=== PATIENT | female | born 1975 ===

== ENCOUNTER 2020-04-20 10:27 | Outpatient (REF) | payer OTHER, SELFPAY | END 2020-04-20 10:28 | disposition home or self-care (01) | LOC: HO.LAB 10:27 | PROVIDERS: Visit Provider Internal Medicine | DX: Z20.828 Contact with and (suspected) exposure to other viral communicable diseases (principal) | CPT/HCPCS: U0003 ==

== ENCOUNTER → 2020-09-10 12:25 | Outpatient (BNVA) | payer OTHER, SELFPAY | PROVIDERS: Visit Provider Physician Assistant | DX: Z13.89 Encounter for screening for other disorder (principal) | CPT/HCPCS: Q3014 ==

== ENCOUNTER 2020-09-11 09:29 | Outpatient (REF) | payer OTHER, SELFPAY ==
[2020-09-11 10:07] LABS: MANUAL DIFF FLAG NO
[2020-09-11 10:18] LABS: Basophils Percent Auto 0.5 % (0-2); Eosinophils Absolute Auto 0.2 X10*3/uL (0.0-0.4); Hematocrit 43.8 % (37-47); Hemoglobin 14.8 g/dl (12.0-16.0); Imm Gran Abs Auto 0.02 X10*3/uL (0.00-0.03); Imm Gran Pct Auto 0.3 % (0.0-0.4); Lymphocytes Percent Auto 39.7 % (20-40); Mean Corpuscular HGB Conc 33.8 g/dl (31.0-35.0); Mean Corpuscular Hemoglobin 30.6 pg (27.0-33.0); Mean Corpuscular Volume 90.7 fL (80-98); Mean Platelet Volume 8.6 fL (9.4-12.3); Monocytes Absolute Auto 0.6 X10*3/uL (0.1-1.2); Monocytes Percent Auto 7.3 % (2-11); Neutrophils Absolute Auto 3.8 X10*3/uL (2.0-8.3); Neutrophils Percent Auto 50.2 % (45-73); Platelet Count 370 X10*3/uL (160-400); Red Blood Count 4.83 X10*6/uL (4.20-5.50); Red Cell Distribution Width 11.9 % (11.0-16.0); White Blood Count 7.6 X10*3/uL (4.8-10.8)
[2020-09-11 10:28] LABS: Estimated Average Glucose 111 mg/dL; Hemoglobin A1c % 5.5 %
[2020-09-11 10:51] LABS: Alanine Aminotransferase 23 U/L (0-31); Albumin Level 4.5 g/dL (3.5-5.0); Alkaline Phosphatase 94 U/L (39-117); Aspartate Amino Transferase 20 U/L (5-31); Bilirubin Direct 0.2 mg/dL (0.0-0.5); Bilirubin Total 0.9 mg/dL (0.0-1.0); Cholesterol 265 mg/dL; HDL Cholesterol 38 mg/dL; LDL Cholesterol Calculated 170 mg/dl; Total Protein 7.1 g/dL (6.5-8.0); Triglycerides 289 mg/dL
[2020-09-11 11:10] LABS: HBS Num1 6.19 mIU/mL (0-7.99); HBc Num1 0.07 S/CO (0.00-0.79); HBsAGNum1 0.19 S/CO (0.00-0.99); Hepatitis B Core Antibody Nonreactive (Nonreactive); Hepatitis B Surface Antigen Negative (Negative); ~HepC Num1 0.08 S/CO (0.00-0.79); ~Hepatitis B Surface Antibody NONREACTIVE (Nonreactive); ~Hepatitis C Antibody Nonreactive (Nonreactive)
[2020-09-13 04:47] LABS: Hepatitis A Antibody IgM 0.13 Index (0-0.79); ~Hepatitis A Antibody IgM Nonreactive (Nonreactive)
[2020-09-13 21:47] LABS: Insulin Level Total 11.4 uIU/mL
[2020-09-14 15:16] LABS: FIB-ALT 21 U/L (6-29); FIB-Alpha-2-Macroglobulin 257 mg/dL (106-279); FIB-Apolipoprotein A1 149 mg/dL (101-198); FIB-GGT 30 U/L (3-55); FIB-Haptoglobin 236 mg/dL (43-212); FIB-Total Bilirubin 0.4 mg/dL (0.2-1.2); Liver Fibrosis Score 0.15; Liver Fibrosis Stage F0; Nec Inflam Act Grade A0; Nec Inflam Act Score 0.07
== END 2020-09-11 09:30 | disposition home or self-care (01) ==
LOC: HO.LAB 09:29
PROVIDERS: PCP Family Medicine; Visit Provider Physician Assistant
DX: B19.20 Unspecified viral hepatitis C without hepatic coma (principal); K76.0 Fatty (change of) liver, not elsewhere classified; R79.89 Other specified abnormal findings of blood chemistry; R10.11 Right upper quadrant pain; R74.01 Elevation of levels of liver transaminase levels
CPT/HCPCS: 36415; 80061; 80076; 81596; 83036; 83525; 85025; 86704; 86706; 86709; 86803; 87340

== ENCOUNTER 2020-09-26 18:18 | Emergency (ER) | payer OTHER, SELFPAY ==
--- NOTE | ~2020-09-26 | CT_ITS ---
EXAMINATION: CT ABDOMEN AND PELVIS WITHOUT CONTRAST CLINICAL INFORMATION: Right flank pain and hematuria COMPARISON: Abdominal ultrasound 02/28/2020 CT abdomen pelvis 08/04/2016 TECHNIQUE: Multidetector volumetric imaging was performed from the superior aspect of the liver through the pubic symphysis. Sagittal and coronal reformatted images were obtained on the technologist's workstation. This CT examination was performed using dose optimization techniques as appropriate, variously including the following: *Automated exposure control *Adjustment of mA and/or kV according to patient size (this includes techniques or standardized protocols for targeted exams where dose is matched to indication/reason for exam; i.e. extremities or head) *Use of iterative reconstruction technique DLP: 728 mGy-cm FINDINGS: LUNG BASES: The visualized lung bases are unremarkable. LIVER, GALLBLADDER, AND BILIARY TREE: The liver is normal in size, shape, and attenuation. No focal hepatic lesion or biliary ductal dilatation is present. Status post cholecystectomy. PANCREAS: Unremarkable. SPLEEN: Unremarkable. ADRENAL GLANDS: Unremarkable. KIDNEYS AND URETERS: The kidneys are normal in size, shape, and attenuation. Two small 3 mm nonobstructing calculi are present in the left kidney. These were present in 2017 but appear minimally larger. No hydronephrosis, hydroureter, or right-sided calculi seen. No perinephric stranding. BLADDER: Unremarkable. GASTROINTESTINAL TRACT: The small and large bowel are unremarkable. The appendix is unremarkable. ABDOMINAL WALL: No significant hernia is appreciated. LYMPH NODES: Some small retroperitoneal lymph nodes are present but there is no adenopathy. VASCULAR: Unremarkable. PELVIC VISCERA: An anteverted uterus is present. An abnormal adnexal mass is not seen OSSEOUS STRUCTURES: Unremarkable. CT/CT abdomen pelvis wo con IMPRESSION: 2 small nonobstructing calculi left kidney.
[2020-09-26 20:42] VITALS: BP 164/94; PULSE 96; RESP 16; TEMP 36.7; O2SAT 99; BMI 32.9
--- NOTE | 2020-09-26 21:06 | ED.BACK ---
HPI - Back Pain/Injury General Chief Complaint: Back Pain/Injury Stated Complaint: back pain Time Seen by Provider: 09/26/20 21:05 Source: patient Mode of arrival: ambulatory Limitations: no limitations History of Present Illness HPI Narrative: 44-year-old female came in with right side back pain radiating down to both buttocks, pain started since yesterday, no trauma no injury to the back, patient stated that she had dysuria and urinary frequency. Patient declined any urinary incontinence, no fever, no history of IV drug abuse, no focal pain or tenderness in the lumbar spine. Related Data Home Medications Medication Instructions Recorded Confirmed amitriptyline 25 mg tablet 25 mg PO BEDTIME 09/10/20 cyclobenzaprine 10 mg tablet 10 mg PO TID 09/10/20 diclofenac sodium 75 mg 75 mg PO BID 09/10/20 tablet,delayed release fluticasone propionate 44 2 puff INHALATION BID 09/10/20 mcg/actuation HFA aerosol inhaler fluticasone propionate 50 2 spray INTRANASAL DAILY 09/10/20 mcg/actuation nasal spray,suspension gabapentin 600 mg tablet 600 mg PO TID 09/10/20 hydrochlorothiazide 12.5 mg capsule 12.5 mg PO BID 09/10/20 ibuprofen 800 mg tablet 800 mg PO TID 09/10/20 meloxicam submicronized 5 mg 5 mg PO DAILY 09/10/20 capsule Previous Rx's Medication Instructions Recorded cyclobenzaprine 10 mg PO BEDTIME PRN #10 tab 09/27/20 oxycodone 5 mg PO Q8H PRN #7 tab 09/27/20 Allergies Allergy/AdvReac Type Severity Reaction Status Date / Time aspirin [Aspirin] Allergy Unknown PAIN ON Verified 09/10/20 12:24 URINATION lisinopril Allergy Unknown Unknown Verified 09/10/20 12:24 Review of Systems Review of Systems: All other systems are reviewed and are negative Constitutional: Reports as per HPI and Reports no additional constitutional complaints Eyes: Reports as per HPI and Reports no additional eye complaints Reports system reviewed and no additional complaints, except as documented Cardiovascular: Reports as per HPI and Reports no additional cardiovascular complaints Respiratory: Reports as per HPI and Reports no additional respiratory complaints Gastrointestinal: Reports as per HPI and Reports no additional gastrointestinal complaints Genitourinary: Reports no additional female genitourinary complaints Musculoskeletal: Reports no additional musculoskeletal complaints Skin/Breast: Reports system reviewed and no additional complaints, except as docu Psychiatric: Reports no additional psychiatric complaints Endocrine: Reports no additional endocrine complaints Hematologic/Lymphatic: Reports no additional hematologic/lymphatic complaints Allergic/Immunologic: Reports no additional allergic/immunologic complaints Reports system reviewed and no additional complaints, except as documented and Reports Abnormal speech present [facility] Past Medical History Medical History Anxiety Depression HTN (hypertension) Surgical History Hx of cholecystectomy Hx of tubal ligation Family History Family History Father Prostate cancer Paternal Grandfather Prostate cancer Maternal Grandfather Skin cancer Social History Social History Household Members: Children Alcohol intake: never Smoking Status: Current every day smoker Advance Directives: No Advance Directives Information Provided: Yes Current occupational status: disabled Physical Exam Vital Signs: Vital Signs: Last Vital Signs Temp 98.0 F 09/26/20 20:42 Pulse 80 09/26/20 23:04 Resp 16 09/26/20 23:04 BP 146/91 H 09/26/20 23:04 Pulse Ox 98 09/26/20 23:04 Body Mass Index 32.9 Vital signs have been reviewed as appeared to be correct. Blood pressure normal. Heart rate normal. Respiration rate normal. Temperature normal. Oxygen saturation normal. Appearance: Alert. Oriented X3. No acute distress. Head: Normal external exam. Normocephalic. Atraumatic. No Thpaa signs noted. No raccoon eyes noted Eyes: PERRLA. EOMI. Conjunctiva and sclera normal. Eyelids normal. ENT: TM's Normal. Pharynx normal. Uvula midline. Moist mucous membranes. No trismus noted. No drooling noted. No muffled voice noted. Neck: Normal inspection. Neck supple. FROM. No adenopathy. Thyroid Normal. No meningeal signs. No neck mass noted. CVS: Normal heart rate and rhythm. Heart sound normal. No murmurs noted. Pulses normal throughout. Respiratory: No respiratory distress. Painless inspiration. Breath sounds normal. No wheezes/rales/rhonchi noted. Chest nontender. No accessory muscle usage noted or decreased air movement noted. Abdomen: Soft and nontender. Bowel sounds normal in all 4 quadrants. No distention noted. No organomegaly noted. No visible injury noted. Back: No CVA tenderness. Full range of motion noted. Skin: Skin warm and dry. Normal skin color. Normal skin turgor. No rashes/lesions/lacerations noted. Extremities: No lower extremity edema. Extremities exhibit normal range of motion. Extremities nontender. Neuro: Oriented X 3. No motor deficit. No sensory deficit. Reflexes normal. Perianal sensation is intact, patient is able to ambulate in both heels and toes. Course Course Course Narrative: 44-year-old female came in with right lower back pain, physical exam and workup is consistent with muscular sprain. Patient feels better with oxycodone given in the emergency department. As discussed with the patient we will discharge the patient on few pills of oxycodone/muscle relaxant/heating pad. MDM - Back Pain/Injury Lab Data Attestation: I reviewed the patient's lab results. Labs: Lab Results 09/26/20 09/26/20 Range/Units 21:06 21:06 Urine Color YELLOW Urine Appearance CLEAR Urine pH 6.0 (5.0-8.0) Ur Specific [place]idan >= 1.030 H (1.005-1.025) Urine Protein NEG (NEG-TRACE) MG/DL Urine Glucose (UA) NEG (NEG) MG/DL Urine Ketones NEG (NEG) MG/DL Urine Blood 1+ H (NEG) Urine Nitrite NEG (NEG) Ur Leukocyte Esterase NEG (NEG) Urine RBC 0-2 (0) /HPF Urine WBC 0-2 (0-4) /HPF Ur Squamous Epith Cells TRACE /LPF Urine Bacteria NONE /LPF Urine Test NEGATIVE (NEGATIVE) Imaging Data CT scan - abdomen: Radiologist's impression: 2 small nonobstructing calculi left kidney. Discharge Plan Discharge Clinical Impression: Strain of lumbar region Qualifiers: Encounter type: initial encounter Qualified Code(s): S39.012A - Strain of muscle, fascia and tendon of lower back, initial encounter Patient Disposition: Home, Self-Care Instructions: Musculoskeletal Pain (ED) Prescriptions: New cyclobenzaprine 10 mg tablet 10 mg PO BEDTIME PRN (Reason: muscle spasm) Qty: 10 RF: 0 oxycodone 5 mg tablet 5 mg PO Q8H PRN (Reason: pain) Qty: 7 RF: 0 Referrals: Elizabeth Hess MD [Primary Care Provider] - 2 days
[2020-09-26 21:15] LABS: Glucose Urine UA NEG (NEG); Leukocyte Esterase Urine NEG (NEG); Nitrite Urine NEG (NEG); Specific Gravity - Urine >= 1.030 (1.005-1.025); Urine Blood 1+ (NEG); Urine Ketones NEG (NEG); Urine Protein NEG (NEG-TRACE)
[2020-09-26 21:16] LABS: Appearance Urine CLEAR; Color Urine YELLOW
[2020-09-26 21:17] LABS: UPreg QC Valid YES; Urine Pregnancy NEGATIVE (NEGATIVE)
[2020-09-26 21:28] LABS: RBC Urine 0-2 /HPF (0); Squamous Epithelial Cell Urine TRACE /LPF; WBC Urine 0-2 /HPF (0-4)
[2020-09-26] MEDS: oxyCODONE HCl Immed Release 5 MG TABLET PO (21:35)
[2020-09-26 23:04] VITALS: BP 146/91; PULSE 80; RESP 16; O2SAT 98
== END 2020-09-27 01:32 | disposition home or self-care (01) ==
PROVIDERS: Emergency Provider Emergency Medicine; PCP Family Medicine
DX: S39.012A Strain of muscle, fascia and tendon of lower back, initial encounter (principal); X58.XXXA Exposure to other specified factors, initial encounter; N20.0 Calculus of kidney; I10 Essential (primary) hypertension; F17.200 Nicotine dependence, unspecified, uncomplicated; Y93.9 Activity, unspecified; Y92.9 Unspecified place or not applicable; Y99.9 Unspecified external cause status
CPT/HCPCS: 74176; 81001; 81025; 99284

== ENCOUNTER 2020-11-05 15:20 | Outpatient (REF) | payer OTHER, SELFPAY ==
--- NOTE | ~2020-11-05 | MR_ITS ---
EXAMINATION: MR LUMBAR SPINE WITHOUT CONTRAST CLINICAL INFORMATION: Lumbar radiculopathy. COMPARISON: Plain films of the lumbar spine 01/20/2018. CT scan of the abdomen and pelvis 09/26/2020. TECHNIQUE: MRI of the lumbar spine was obtained using routine sequences without contrast. FINDINGS: VERTEBRAL BODIES AND PARASPINAL STRUCTURES: There is anatomic alignment of the vertebral bodies. There is narrowing of intervertebral disc height with loss of signal at T10-T11 and L1-L2. Mild loss of intervertebral disc signal is seen at L4-L5 and L5-S1. There is a Schmorl's node in the superior endplate of L2. The vertebral bodies have normal height and contour and no fractures are demonstrated. Overall, marrow signal appears homogenous. The visualized retroperitoneal and pelvic structures are unremarkable. CONUS MEDULLARIS AND CAUDA EQUINA: Normal, terminating at the level of L1. The lower thoracic spinal cord appears normal. The cauda equina nerve roots and filum terminale appear normal. SPINAL LEVELS: T10-T11: There is mild bilateral facet arthropathy. There is a small left-sided disc protrusion with minimal distortion of the ventral thecal sac without compression of the thoracic spinal cord. There is no central stenosis. The neural foramina are patent. L1-L2: The facet joints appear normal bilaterally. Disc contour is normal. There is no central stenosis or foraminal narrowing. L2-L3: There is mild to moderate right and mild left facet arthropathy with ligamenta flava hypertrophy and facet joint effusions. Disc contour is normal. There is no central stenosis or foraminal narrowing. L3-L4: There is mild to moderate left and mild right facet arthropathy. Posterior disc contour is normal. There is no central stenosis and the neural foramina are patent. L4-L5: There is moderate to severe bilateral facet arthropathy with ligamenta flava hypertrophy and facet joint effusions. There is a left-sided foraminal disc protrusion with an annular fissure without definite mass effect on the exiting nerve root. There is slight narrowing of the left subarticular recess, with mild impingement on the traversing left L5 nerve root. There is no central stenosis. L5-S1: There is moderate bilateral facet arthropathy. There is a central and right-sided disc protrusion with an annular fissure, which impinges on the traversing right S1 nerve root. There is no central stenosis. MR/MR lumbar spine wo con IMPRESSION: 1. At L5-S1 there is a central and right-sided disc protrusion, impinging on the traversing right S1 nerve root. 2. At L4-L5 there is facet arthropathy and there is a left-sided foraminal disc protrusion with an annular fissure, without definite impingement on the exiting L4 nerve root. There is slight narrowing of the left subarticular recesses with mild impingement on the traversing left L5 nerve root. 3. Milder spondylosis and facet arthropathy are demonstrated at other levels as described above.
== END 2020-11-05 15:21 | disposition home or self-care (01) ==
LOC: HO.MRI 15:20
PROVIDERS: Visit Provider Psychiatry & Neurology Neurology
DX: M54.16 Radiculopathy, lumbar region (principal)
CPT/HCPCS: 72148

== ENCOUNTER → 2020-11-19 11:56 | Outpatient (BNVA) | payer OTHER, SELFPAY | PROVIDERS: PCP Family Medicine; Visit Provider Physician Assistant | DX: Z13.89 Encounter for screening for other disorder (principal) | CPT/HCPCS: Q3014 ==

== ENCOUNTER 2021-02-14 14:03 | Outpatient (REF) | payer OTHER, SELFPAY ==
--- NOTE | ~2021-02-14 | XR_ITS ---
EXAMINATION: XR PELVIS XR HIP, LEFT CLINICAL INFORMATION: Pelvic and left hip pain. COMPARISON: CT abdomen and pelvis 09/26/2020. TECHNIQUE: Single view pelvis with 2 additional views left hip. FINDINGS: PELVIS: The pelvis appears unremarkable. The SI joints appear normal. LEFT HIP: Some minimal degenerative changes are noted in the left hip with some mild supra-acetabular sclerosis and a small lateral osteophyte. XR/XR hip LT min 2V IMPRESSION: Minimal degenerative change in the left hip as described above.
--- NOTE | ~2021-02-14 | XR_ITS ---
EXAMINATION: XR PELVIS XR HIP, LEFT CLINICAL INFORMATION: Pelvic and left hip pain. COMPARISON: CT abdomen and pelvis 09/26/2020. TECHNIQUE: Single view pelvis with 2 additional views left hip. FINDINGS: PELVIS: The pelvis appears unremarkable. The SI joints appear normal. LEFT HIP: Some minimal degenerative changes are noted in the left hip with some mild supra-acetabular sclerosis and a small lateral osteophyte. XR/XR pelvis 1-2V IMPRESSION: Minimal degenerative change in the left hip as described above.
== END 2021-02-14 14:04 | disposition home or self-care (01) ==
LOC: HO.XRAY 14:03
PROVIDERS: PCP Family Medicine; Visit Provider Physician Assistant
DX: M70.62 Trochanteric bursitis, left hip (principal)
CPT/HCPCS: 72170; 73502; 99202

== ENCOUNTER 2021-03-06 15:35 | Outpatient (REF) | payer MEDICAID, SELFPAY ==
--- NOTE | 2021-03-06 | PFT_ITS ---
FLOWS: FEV1 106% of predicted at 3.06 L. FVC 105% of predicted at 3.72 L. FEV1 to FVC ratio of 0.82. No bronchodilator response. LUNG VOLUMES: Total lung capacity 106% of predicted at 5.38 L. Residual volume 85% of predicted at 1.46 L. Slow vital capacity 117% of predicted at 3.92 L. Expiratory reserve volume 98% of predicted at 1.09 L. Diffusion capacity is mildly decreased. IMPRESSION: No obstructive or restrictive ventilatory defect. No bronchodilator response. Decreased diffusion capacity suggests emphysema. Betito Calix MD AP/MODL / [id number]
== END 2021-03-06 15:36 | disposition home or self-care (01) ==
LOC: HO.RESP 15:35
PROVIDERS: PCP Family Medicine; Visit Provider Family Medicine
DX: J45.30 Mild persistent asthma, uncomplicated (principal)
CPT/HCPCS: 94060; 94727; 94729

== ENCOUNTER 2022-11-17 07:34 | Emergency (ER) | payer MEDICAID, SELFPAY ==
[2022-11-17 07:38] VITALS: BP 139/89; PULSE 89; RESP 16; TEMP 36.1; O2SAT 100; BMI 25.7
[2022-11-17 07:43] VITALS: BP 121/80; PULSE 91; RESP 18; TEMP 36.7; O2SAT 100
--- NOTE | 2022-11-17 07:44 | ED.GENADULT ---
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 Patient states that [place] and was bit by a lot of mosquitos and now her right eye is swollen. Patient denies any dizziness, lightheadedness, abdominal pain, nausea, vomiting, fever, chills, blurry vision, double vision, loss of vision, chest pain, difficulty breathing, shortness of breath, back pain, night sweats, pain with urination, increased urinary frequency, increased urinary urgency, blood in her urine or stool, syncope or a near syncopal episode, recent trauma or falls, bowel incontinence, bladder incontinence, bowel retention, bladder retention, or any other complaints at this time. Onset (ago): hour(s) Severity: mild Relieving factors: none Exacerbating factors: none Associated symptoms: denies other symptoms Treatments prior to arrival: none Related Data Home Medications Medication Instructions Recorded Confirmed amitriptyline 25 mg tablet 25 mg PO BEDTIME 09/10/20 cyclobenzaprine 10 mg tablet 10 mg PO TID 09/10/20 diclofenac sodium 75 mg 75 mg PO BID 09/10/20 tablet,delayed release fluticasone propionate 44 2 puff inhalation BID 09/10/20 mcg/actuation HFA aerosol inhaler (Flovent HFA) fluticasone propionate 50 2 spray intranasal DAILY 09/10/20 mcg/actuation nasal spray,suspension gabapentin 600 mg tablet 600 mg PO TID 09/10/20 hydrochlorothiazide 12.5 mg capsule 12.5 mg PO BID 09/10/20 ibuprofen 800 mg tablet 800 mg PO TID 09/10/20 meloxicam submicronized 5 mg 5 mg PO DAILY 09/10/20 capsule Previous Rx's Medication Instructions Recorded cyclobenzaprine 10 mg tablet 10 mg PO BEDTIME PRN muscle spasm 09/27/20 #10 tabs oxycodone 5 mg tablet 5 mg PO Q8H PRN pain #7 tabs 09/27/20 methylcellulose (laxative) 500 mg 500 mg PO BID 30 days #60 tabs 06/01/21 tablet (Citrucel) polyethylene glycol 3350 17 17 g PO DAILY #510 grams 11/19/20 gram/dose oral powder (Miralax) naproxen 500 mg tablet 500 mg PO BID 30 days #60 tabs 02/14/21 docusate sodium 100 mg capsule 200 mg PO BEDTIME 30 days #60 caps 07/29/22 (Colace) prednisone 20 mg tablet 20 mg PO DAILY 7 days #7 tabs 11/17/22 Allergies Allergy/AdvReac Type Severity Reaction Status Date / Time aspirin [Aspirin] Allergy Unknown PAIN ON Verified 11/19/20 11:58 URINATION lisinopril Allergy Unknown Unknown Verified 11/19/20 11:58 Review of Systems Constitutional: Constitutional: Reports no additional constitutional complaints, Denies chills, Denies fever(s) and Denies night sweats Eyes: Eyes: Reports no additional eye complaints, Denies blurry vision, Denies change in vision, Denies diplopia, Denies eye discharge, Denies loss of vision and Denies eye pain Comments: right eye swelling ENT: Denies dizziness Cardiovascular: Cardiovascular: Reports no additional cardiovascular complaints, Denies chest pain, Denies lightheadedness, Denies Loss of Consciousness and Denies dyspnea Respiratory: Respiratory: Reports no additional respiratory complaints and Denies dyspnea Gastrointestinal: Gastrointestinal: Reports no additional gastrointestinal complaints, Denies abdominal pain, Denies melena, Denies hematochezia, Denies change in bowel habits and Denies change in stool character Genitourinary: Genitourinary: Denies hematuria, Denies urinary frequency, Denies dysuria, Denies urinary incontinence, Denies urinary hesitancy and Denies urinary urgency Musculoskeletal: Musculoskeletal: Reports no additional musculoskeletal complaints, Denies numbness and Denies tingling Neurologic: Denies dizziness, Denies loss of vision, Denies numbness and Denies tingling Psychiatric: Psychiatric: Reports no additional psychiatric complaints Endocrine: Endocrine: Reports no additional endocrine complaints Hematologic/Lymphatic: Hematologic/Lymphatic: Reports no additional hematologic/lymphatic complaints Allergic/Immunologic: Allergic/Immunologic: Reports no additional allergic/immunologic complaints PMFSH Past Medical History Attestation statement: The following information was validated with the patient. Source: old records reviewed and nursing notes reviewed Medical History Anxiety Depression HTN (hypertension) Surgical History Hx of cholecystectomy Hx of tubal ligation Family History Family History Father Prostate cancer Paternal Grandfather Prostate cancer Maternal Grandfather Skin cancer Social History Social History Household Members: Children Household Members Other:: Single 26, 21 Alcohol intake: never Patient Tobacco Use Status: Never used Tobacco Smoked in Last 30 Days: Yes Use of substances other than those prescribed or required for medical reasons: No Advance Directives: No Advance Directives Information Provided: Yes Current occupational status: disabled Physical Exam ED Vital Signs: Vital Signs - 24 hr 11/17/22 07:38 11/17/22 07:43 Temperature 96.9 F 98.1 F Pulse Rate 89 91 Respiratory Rate 16 18 Blood Pressure 139/89 121/80 Pulse Oximetry 100 100 Oxygen Delivery Method Room Air Room Air BMI result Body Mass Index 25.7 Const General: cooperative, no acute distress, alert and awake Nutritional Appearance: well nourished Orientation/consciousness: patient oriented x3 Limitations: no limitations HENMT Head: Yes normal to inspection and Yes atraumatic Ears: hearing grossly normal bilaterally and external ears normal General nose exam: Normal external nose present, no nasal discharge noted and no epistaxis Face and sinus: Yes normal facial exam, No abrasion and No laceration Mouth: Normal oral and palatal mucosa present, no drooling and no muffled voice Eyes Eyelids: Yes other (minimal erythema and swelling to the right inferior eye lid) Conjunctivae: conjunctivae normal Pupils: Equal, round and reactive pupils present EOM: EOMs intact bilaterally Neck Neck: Yes normal visual inspection, Yes full ROM and Yes no lymphadenopathy Chest Chest palpation & inspection: normal inspection of the chest Resp Effort & Inspection: normal respiratory effort and able to speak in complete sentences GI Inspection: Yes normal to inspection Neuro General: patient oriented x3 and moves all extremities Cranial nerves: Yes Equal, round and reactive pupils present Cognition (Neuro): normal cognition Motor exam (neuro): 5/5 motor strength present throughout Sensory Exam: Normal double simultaneous stimulation for sensation Coordination: [id number] test normal Extrem General: Yes normal to inspection, Yes full ROM and Yes capillary refill normal Psych Appearance: grossly normal Mental Status: mental status grossly normal Affect: normal affect Attitude: cooperative Thought process: Normal thought process present Thought content: Normal thought content present Insight: Good insight present (Psych) Medical Decision Making Medical Decision Making MDM Narrative: Patient is a 47 year old assigned female at with a history of HTN presenting to the emergency department today with right eye swelling. Patient's physical exam showed minimal erythema and swelling to the right inferior eye lid as well as multiple mosquito bites to the bilateral arms. I explained my physical exam findings to the patient. I answered all questions asked by the patient. I stressed the importance of the patient taking her medication as prescribed. I stressed the importance of the patient following up with her primary care provider. I stressed the importance of the patient returning to the emergency department immediately if her symptoms were to worsen or if she were to develop any dizziness, shortness of breath, difficulty breathing, chest pain, blurry vision, loss of vision, nausea, vomiting, abdominal pain, fever, chills, back pain, or any other complaints. Patient verbalized agreement and understanding with this treatment plan and discharge. Differential Diagnosis Differential Diagnoses: The differential diagnosis associated with the presentation includes allergic reaction vs. insect bite Discharge Plan Discharge Clinical Impression: Allergic reaction Patient Disposition: Home, Self-Care Instructions: General Allergic Reaction (ED) Additional Instructions: Follow up with your primary care provider. Return to the emergency department immediately if your symptoms worsen or if you develop any dizziness, shortness of breath, difficulty breathing, chest pain, blurry vision, loss of vision, nausea, vomiting, abdominal pain, fever, chills, back pain, or any other complaints. Sorin un seguimiento con schroeder proveedor de atenci?n primaria. Regrese al departamento de emergencias de inmediato si stephon s?ntomas empeoran o si presenta mareos, falta de aire, dificultad para respirar, dolor de pecho, visi?n borrosa, p?rdida de la visi?n, n?useas, v?mitos, dolor abdominal, fiebre, escalofr?os, dolor de espalda o cualquier otras quejas. Prescriptions: New prednisone 20 mg tablet 20 mg PO DAILY 7 Days Qty: 7 0RF No Action docusate sodium [Colace] 100 mg capsule 200 mg PO BEDTIME 30 Days Qty: 60 1RF cyclobenzaprine 10 mg tablet 10 mg PO BEDTIME PRN (Reason: muscle spasm) Qty: 10 0RF oxycodone 5 mg tablet 5 mg PO Q8H PRN (Reason: pain) Qty: 7 0RF Citrucel 500 mg tablet 500 mg PO BID 30 Days Qty: 60 5RF polyethylene glycol 3350 [Miralax] 17 gram/dose powder 17 g PO DAILY Qty: 510 2RF naproxen 500 mg tablet 500 mg PO BID 30 Days Qty: 60 3RF fluticasone propionate 50 mcg/actuation spray,suspension 2 spray intranasal DAILY Rx Instructions: administer into each nostril ibuprofen 800 mg tablet 800 mg PO TID cyclobenzaprine 10 mg tablet 10 mg PO TID diclofenac sodium 75 mg tablet,delayed release (DR/EC) 75 mg PO BID Flovent HFA 44 mcg/actuation HFA aerosol inhaler 2 puff inhalation BID Rx Instructions: administer with spacer hydrochlorothiazide 12.5 mg capsule 12.5 mg PO BID gabapentin 600 mg tablet 600 mg PO TID meloxicam submicronized 5 mg capsule 5 mg PO DAILY amitriptyline 25 mg tablet 25 mg PO BEDTIME Referrals: Elizabeth Hess MD [Primary Care Provider] - Print Language: Hebrew
--- NOTE | 2022-11-17 07:46 | PC.NURSE ---
Alert and oriented, arrived from home with swollen eyes and red itchy rash to arms and chest. States on Wednesday went to the [place] and yesterday was at an outdoor event [place] that had been recently [place]. Denies pain, sob, headache, or chest pain. States throat is not swollen. VSS, 100% on RA. Daughter at bedside. Denies blurry eyesight or drainage from eyes.
--- NOTE | 2022-11-17 08:00 | PC.NURSE ---
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
== END 2022-11-17 08:02 | disposition home or self-care (01) ==
PROVIDERS: Emergency Provider Emergency Medicine; PCP Family Medicine
DX: H02.843 Edema of right eye, unspecified eyelid (principal); T78.40XA Allergy, unspecified, initial encounter; X58.XXXA Exposure to other specified factors, initial encounter
CPT/HCPCS: 99283; 99284

== ENCOUNTER 2022-11-30 16:38 | Emergency (ER) | payer MEDICAID, SELFPAY ==
--- NOTE | 2022-11-30 17:07 | ED.SKABFB ---
HPI - Skin/Abscess/Foreign Bdy General Chief complaint: General Medical Stated complaint: huge rashes all over body Time Seen by Provider: 11/30/22 17:25 Source: patient Mode of arrival: ambulatory Limitations: no limitations History of Present Illness HPI narrative: 47-year-old female presenting to the emergency department for evaluation of diffuse itchy rash throughout got a present since 11/17/2022, patient reports she was seen here prescribed Benadryl and prednisone with little to no relief she says it initially helped a little bit than the came back. She reports it is itchy and very uncomfortable, having difficulty sleeping secondary to itchiness. Patient reports she has not yet seen allergy & immunology. She has an EpiPen at home for another reason which she has not yet use.Patient denies fevers, chills, chest pain, shortness of breath, nausea, vomiting, abdominal pain, headache, vision changes, dizziness , diarrhea, changes in voice, trouble controlling secretions and weakness. Related Data Home Medications Medication Instructions Recorded Confirmed amitriptyline 25 mg tablet 25 mg PO BEDTIME 09/10/20 cyclobenzaprine 10 mg tablet 10 mg PO TID 09/10/20 diclofenac sodium 75 mg 75 mg PO BID 09/10/20 tablet,delayed release fluticasone propionate 44 2 puff inhalation BID 09/10/20 mcg/actuation HFA aerosol inhaler (Flovent HFA) fluticasone propionate 50 2 spray intranasal DAILY 09/10/20 mcg/actuation nasal spray,suspension gabapentin 600 mg tablet 600 mg PO TID 09/10/20 hydrochlorothiazide 12.5 mg capsule 12.5 mg PO BID 09/10/20 ibuprofen 800 mg tablet 800 mg PO TID 09/10/20 meloxicam submicronized 5 mg 5 mg PO DAILY 09/10/20 capsule Previous Rx's Medication Instructions Recorded cyclobenzaprine 10 mg tablet 10 mg PO BEDTIME PRN muscle spasm 09/27/20 #10 tabs oxycodone 5 mg tablet 5 mg PO Q8H PRN pain #7 tabs 09/27/20 methylcellulose (laxative) 500 mg 500 mg PO BID 30 days #60 tabs 11/19/20 tablet (Citrucel) polyethylene glycol 3350 17 17 g PO DAILY #510 grams 11/19/20 gram/dose oral powder (Miralax) naproxen 500 mg tablet 500 mg PO BID 30 days #60 tabs 02/14/21 docusate sodium 100 mg capsule 200 mg PO BEDTIME 30 days #60 caps 07/29/22 (Colace) prednisone 20 mg tablet 20 mg PO DAILY 7 days #7 tabs 11/17/22 epinephrine 0.3 mg/0.3 mL 0.3 mg (0.3 mL) IM Q4H PRN 11/30/22 injection, auto-injector (EpiPen anaphylaxis #2 ea 2-Bert) hydroxyzine HCl 25 mg tablet 25 mg PO BEDTIME PRN anxiety #10 11/30/22 tabs prednisone 20 mg tablet 40 mg PO DAILY 5 days #10 tabs 11/30/22 Allergies Allergy/AdvReac Type Severity Reaction Status Date / Time aspirin [Aspirin] Allergy Unknown PAIN ON Verified 11/30/22 17:08 URINATION lisinopril Allergy Unknown Unknown Verified 11/30/22 17:08 Review of Systems Review of Systems: Constitutional : No Weight loss, No Fever, No Chills, No Fatigue, No Malaise ENT/Mouth : No sore throat, No Rhinorrhea Eyes: No Eye Pain, No Swelling, No Redness Cardiovascular : No Chest Pain, No SOB, No Dyspnea on Exertion, No Orthopnea, No Edema, No Palpitations Respiratory : No Cough, No Sputum, No Wheezing Gastrointestinal : No Nausea, No Vomiting, No Diarrhea, No Constipation, No abdominal Pain, No Hematochezia, No Melena Genitourinary : No Dysuria, No Urinary Frequency, No Hematuria, Musculoskeletal : No joint pain, No Myalgias, No Joint Swelling Skin : No Skin Lesions, + rash Neuro : No Weakness, No Numbness, No Dizziness, No Headache Psych : No Anxiety/Panic, No Depression All other systems reviewed and are negative Yes all other systems are reviewed and are negative [facility] Past Medical History Attestation statement: The following information was validated with the patient. Source: old records reviewed and nursing notes reviewed Medical History Anxiety Depression HTN (hypertension) Surgical History Hx of cholecystectomy Hx of tubal ligation Family History Family History Father Prostate cancer Paternal Grandfather Prostate cancer Maternal Grandfather Skin cancer Social History Social History Household Members: Children Household Members Other:: Single 27, 21 Alcohol intake: never Patient Tobacco Use Status: Never used Tobacco Advance Directives: No Advance Directives Information Provided: No Current occupational status: disabled Physical Exam Vital Signs: Vital Signs: Last Vital Signs Temp 98.4 F 11/30/22 17:08 Pulse 122 H 11/30/22 17:08 Resp 18 11/30/22 17:08 BP 146/107 H 11/30/22 17:08 Pulse Ox 98 11/30/22 17:08 O2 Del Method Room Air 11/30/22 17:08 BMI result Body Mass Index 26.0 Appearance: Alert.? Oriented X3.? No acute distress.? Head: Normocephalic, atraumatic, no step-offs or deformities Eyes: Pupils equal, round and reactive to light.? Neck: Normal inspection.? Neck supple.? ENT: normal posterior pharynx, no edema to tongue, lips, uvula, hard or soft palate. Speaking in full sentences controlling secretions well. CVS: Normal heart rate and rhythm.? Pulses normal.? Respiratory: No respiratory distress.? Breath sounds normal. No stridor.? Abdomen: Soft and nontender.? Skin: Skin warm and dry.? Normal skin color.? Normal skin turgor.?+ large hives/welts noted to bilateral upper extremities. + small papules to hands/feet. +palm involvement. No sole or mucous membrane involvement Extremities: No lower extremity edema.? No calf ttp. 5/5 strength to bilateral upper and lower extremities Back: No midline tenderness, no C-spine tenderness, full range of motion, no CVA tenderness bilaterally Neuro: Oriented X 3.? No motor deficit.? No sensory deficit. CN 2-12 intact Course Course Course Narrative: RME: 47-year-old female with past medical history of hypertension presenting to the ED complaining of persistent pruritic rash diffusely over body. Admits seen in our ED on 11/17 suspect have poison redd at that time, was given prednisone and told to take Benadryl without relief. Admits rash is spreading. Denies known new exposures, tick or insect bites + large hives/welts noted to bilateral upper extremities. + small papules to hands/feet. +palm involvement. No sole or mucous membrane involvement Tick-borne illness panel/Lyme/syphilis and IM methylprednisone ordered Full HPI, ROS and PE to be performed by primary ED provider. Reevaluation(s) Reevaluation #1: Patient feeling well after medications. Educated patient on diagnosis and treatment plan, answered all question, patient verbalizes understanding. At this time patient will be discharged home, advised to return with new or worsening symptoms. Educated on worrisome signs and symptoms and when to return. At this time I feel comfortable discharge home. Time: 17:54 Medical Decision Making Medical Decision Making MDM Narrative: 47-year-old female presents with diffuse rash throughout body worsening over the past few days. Physical exam significant for + large hives/welts noted to bilateral upper extremities. + small papules to hands/feet. +palm involvement. No sole or mucous membrane involvement concerns for allergic reaction however due to palm and sole involvement will obtain syphilis test. Will also do Lyme testing. Other differentials include hematological issues. Or acute allergic reaction. No signs of anaphylaxis or airway compromise. Unlikely SJS, TEN or necrotizing infection. Plan Solu-Medrol, Benadryl and Pepcid. Will discharge patient home with allergy and immunology information with epi pens, Benadryl and prednisone Differential Diagnosis Differential Diagnoses: The differential diagnosis associated with the presentation includes concerns for allergic reaction however due to palm and sole involvement will obtain syphilis test. Will also do Lyme testing. Other differentials include hematological issues. Or acute allergic reaction. No signs of anaphylaxis or airway compromise. Unlikely SJS, TEN or necrotizing infection. Admission/Observation Consideration of admission/observation: Escalation of care including admission/observation considered Core Measures AMI core measures followed: Yes Measure exclusions: not indicated Critical Care Time Critical Care Time Critical Care Time: No Discharge Plan Discharge Clinical Impression: Urticaria, Rash Patient Disposition: Home, Self-Care Instructions: Urticaria (ED), Acute Rash (ED) Additional Instructions: Take your medications as prescribed. If you were prescribed antibiotics today, it is important that you take your medication to their entirety, do not skip any doses, do not finish them early. Follow-up with your primary care provider this week. Return to the emergency department with new or worsening symptoms. Such as fevers, chills, chest pain, shortness of breath, nausea, vomiting, dizziness, headache, vision changes, lethargy , changes in voice, trouble controlling her secretions In case of emergency call 911 I have sent an EpiPen to your pharmacy, please use this as we discussed. If you use an EpiPen you should seek medical attention immediately afterwards. Follow-up with Allergy and immunology do not take Benadryl and hydroxyzine at the same time. Prescriptions: New prednisone 20 mg tablet 40 mg PO DAILY 5 Days Qty: 10 0RF hydroxyzine HCl 25 mg tablet 25 mg PO BEDTIME PRN (Reason: anxiety) Qty: 10 0RF epinephrine [EpiPen 2-Bert] 0.3 mg/0.3 mL auto-injector 0.3 mg IM Q4H PRN (Reason: anaphylaxis) Qty: 2 0RF No Action docusate sodium [Colace] 100 mg capsule 200 mg PO BEDTIME 30 Days Qty: 60 1RF cyclobenzaprine 10 mg tablet 10 mg PO BEDTIME PRN (Reason: muscle spasm) Qty: 10 0RF oxycodone 5 mg tablet 5 mg PO Q8H PRN (Reason: pain) Qty: 7 0RF prednisone 20 mg tablet 20 mg PO DAILY 7 Days Qty: 7 0RF Citrucel 500 mg tablet 500 mg PO BID 30 Days Qty: 60 5RF polyethylene glycol 3350 [Miralax] 17 gram/dose powder 17 g PO DAILY Qty: 510 2RF naproxen 500 mg tablet 500 mg PO BID 30 Days Qty: 60 3RF fluticasone propionate 50 mcg/actuation spray,suspension 2 spray intranasal DAILY Rx Instructions: administer into each nostril ibuprofen 800 mg tablet 800 mg PO TID cyclobenzaprine 10 mg tablet 10 mg PO TID diclofenac sodium 75 mg tablet,delayed release (DR/EC) 75 mg PO BID Flovent HFA 44 mcg/actuation HFA aerosol inhaler 2 puff inhalation BID Rx Instructions: administer with spacer hydrochlorothiazide 12.5 mg capsule 12.5 mg PO BID gabapentin 600 mg tablet 600 mg PO TID meloxicam submicronized 5 mg capsule 5 mg PO DAILY amitriptyline 25 mg tablet 25 mg PO BEDTIME Referrals: [facility] [Outside] - 1 day Jamari Longo MD [Primary Care Provider] - 2 days Stand Alone Forms: Work/School Release
[2022-11-30 17:08] VITALS: BP 146/107; PULSE 122; RESP 18; TEMP 36.9; O2SAT 98; BMI 26.0
[2022-11-30] MEDS: diphenhydrAMINE HCL 50 MG/ML VIAL IVPUSH (17:45)
[2022-11-30] MEDS: Famotidine/PF 20 MG/2 ML VIAL IVPUSH (17:45)
[2022-11-30] MEDS: methylPREDNISolone Sod Succ 125 MG/2 ML VIAL IVPUSH (17:45)
[2022-11-30] MEDS: 0.9 % Sodium Chloride 1,000 ML 999 ML IV (17:45)
[2022-12-02 06:12] LABS: Syphilis Screen Nonreactive (Nonreactive)
[2022-12-03 05:39] LABS: Lyme Abs Screen <0.90 index
[2022-12-03 23:28] LABS: A. Phagocytphilium DNA,RT-PCR NOT DETECTED (NOT DETECTED); Babesia Microti DNA, RT-PCR NOT DETECTED (NOT DETECTED); Borrelia Miyamotoi,DNA RT-PCR NOT DETECTED (NOT DETECTED); E.Chaffeensis DNA RT-PCR NOT DETECTED (NOT DETECTED); Lyme(Borrelia ssp)DNA RT-PCR NOT DETECTED (NOT DETECTED)
== END 2022-11-30 18:58 | disposition home or self-care (01) ==
PROVIDERS: Physician Assistant; Emergency Provider Emergency Medicine; PCP Otolaryngology
DX: L50.9 Urticaria, unspecified (principal); I10 Essential (primary) hypertension
CPT/HCPCS: 36415; 86617; 86618; 86780; 87798; 87801; 96374; 96375; 99284; J1200; J2930

== ENCOUNTER 2022-12-07 10:07 | Emergency (ER) | payer MEDICAID, SELFPAY ==
[2022-12-07 10:52] VITALS: BP 126/81; PULSE 96; RESP 18; TEMP 36.1; O2SAT 97; BMI 25.7
== END 2022-12-07 13:38 | disposition left against medical advice (07) ==
PROVIDERS: Emergency Provider Emergency Medicine
DX: L50.0 Allergic urticaria (principal)
CPT/HCPCS: 99281

== ENCOUNTER 2022-12-09 07:07 | Emergency (ER) | payer MEDICAID, SELFPAY ==
[2022-12-09 07:10] VITALS: BP 125/85; PULSE 98; RESP 19; TEMP 36.6; O2SAT 98; BMI 25.7
--- NOTE | 2022-12-09 07:31 | PC.NURSE ---
pt a/o x 4 no sob/[place] noted speaks in full sentences. lower lip swollen. pt states that her tongues feels heavy . lungs - cta. hives to gen body. pt seen by md. pt/daughter aware of plan of care.
[2022-12-09] MEDS: Famotidine/PF 20 MG/2 ML VIAL IVPUSH (07:41)
[2022-12-09] MEDS: diphenhydrAMINE HCL 50 MG/ML VIAL IVPUSH (07:41)
[2022-12-09] MEDS: methylPREDNISolone Sod Succ 125 MG/2 ML VIAL 80 MG IVPUSH (07:41)
[2022-12-09 07:42] VITALS: BP 126/82; PULSE 80
[2022-12-09] MEDS: EPINEPHrine 1 MG/ML VIAL 0.4 MG IM (07:42)
[2022-12-09] MEDS: 0.9 % Sodium Chloride 1,000 ML 999 ML IV (07:43)
--- NOTE | 2022-12-09 09:36 | ED.ALLEREA ---
HPI - Allergic Reaction General Chief complaint: Allergic Reaction Stated complaint: Allergic Reaction Time Seen by Provider: 12/09/22 07:19 Source: patient Mode of arrival: ambulatory Limitations: no limitations History of Present Illness HPI narrative: 47-year-old female presents with swelling of the lips. Patient has a history of allergic type reactions for the past month. She has been and now the emergency department in multiple locations. Today she developed severe swelling of the lower lip. She denies any difficulty breathing or swelling. The symptoms are severe. There is no relieving or exacerbating features. She is on a blood pressure medication, chlorthalidone. She is not on any Richi inhibitors. She was seen at [facility] department yesterday and was prescribed prednisone. She took her last dose last night. Patient does have an EpiPen at home but has not needed to use it. She also describes some generalized pruritus. She has not seen an welding machine operator arc or plant wire chief Related Data Home Medications Medication Instructions Recorded Confirmed amitriptyline 25 mg tablet 25 mg PO BEDTIME 09/10/20 cyclobenzaprine 10 mg tablet 10 mg PO TID 09/10/20 diclofenac sodium 75 mg 75 mg PO BID 09/10/20 tablet,delayed release fluticasone propionate 44 2 puff inhalation BID 09/10/20 mcg/actuation HFA aerosol inhaler (Flovent HFA) fluticasone propionate 50 2 spray intranasal DAILY 09/10/20 mcg/actuation nasal spray,suspension gabapentin 600 mg tablet 600 mg PO TID 09/10/20 hydrochlorothiazide 12.5 mg capsule 12.5 mg PO BID 09/10/20 ibuprofen 800 mg tablet 800 mg PO TID 09/10/20 meloxicam submicronized 5 mg 5 mg PO DAILY 09/10/20 capsule Previous Rx's Medication Instructions Recorded cyclobenzaprine 10 mg tablet 10 mg PO BEDTIME PRN muscle spasm 09/27/20 #10 tabs oxycodone 5 mg tablet 5 mg PO Q8H PRN pain #7 tabs 09/27/20 methylcellulose (laxative) 500 mg 500 mg PO BID 30 days #60 tabs 11/19/20 tablet (Citrucel) polyethylene glycol 3350 17 17 g PO DAILY #510 grams 11/19/20 gram/dose oral powder (Miralax) naproxen 500 mg tablet 500 mg PO BID 30 days #60 tabs 02/14/21 docusate sodium 100 mg capsule 200 mg PO BEDTIME 30 days #60 caps 07/29/22 (Colace) prednisone 20 mg tablet 20 mg PO DAILY 7 days #7 tabs 11/17/22 epinephrine 0.3 mg/0.3 mL 0.3 mg (0.3 mL) IM Q4H PRN 11/30/22 injection, auto-injector (EpiPen anaphylaxis #2 ea 2-Bert) hydroxyzine HCl 25 mg tablet 25 mg PO BEDTIME PRN anxiety #10 11/30/22 tabs prednisone 20 mg tablet 40 mg PO DAILY 5 days #10 tabs 11/30/22 diphenhydramine HCl 25 mg capsule 25 mg PO BEDTIME PRN allergic 12/09/22 reaction #14 caps famotidine 20 mg tablet 20 mg PO BID #20 tabs 12/09/22 fexofenadine 180 mg tablet 180 mg PO DAILY #30 tabs 12/09/22 (Cheryle Allergy) Allergies Allergy/AdvReac Type Severity Reaction Status Date / Time aspirin [Aspirin] Allergy Unknown PAIN ON Verified 12/09/22 07:10 URINATION lisinopril Allergy Unknown Unknown Verified 12/09/22 07:10 Review of Systems Review of Systems: CONSTITUTIONAL: Denies weight loss, fever and chills. HEENT: Denies changes in vision and hearing. RESPIRATORY: Denies SOB and cough. CV: Denies palpitations no CP. GI: Denies abdominal pain, nausea, vomiting and diarrhea. : Denies dysuria and urinary frequency. MSK: Denies myalgia and joint pain. SKIN: Denies rash and pruritus. NEUROLOGICAL: Denies headache and syncope. PSYCHIATRIC: Denies recent changes in mood. Denies anxiety and depression. All other ROS are negative unless in HPI PMFSH Past Medical History Medical History Anxiety Depression HTN (hypertension) Surgical History Hx of cholecystectomy Hx of tubal ligation Family History Family History Father Prostate cancer Paternal Grandfather Prostate cancer Maternal Grandfather Skin cancer Social History Social History Household Members: Children Household Members Other:: Single 27, 21 Alcohol intake: never Patient Tobacco Use Status: Never used Tobacco Smoked in Last 30 Days: No Use of substances other than those prescribed or required for medical reasons: No Advance Directives: No Advance Directives Information Provided: Yes Patient : No Current occupational status: disabled Physical Exam ED Vital Signs: Vital Signs - 24 hr 12/09/22 07:10 12/09/22 07:42 Temperature 98 F Pulse Rate 98 80 Respiratory Rate 19 Blood Pressure 125/85 126/82 Pulse Oximetry 98 Oxygen Delivery Method Room Air BMI result Body Mass Index 25.7 GEN: Well developed, no acute distress, alert, oriented HEENT: Normocephalic, atraumatic, normal external ears, nose appears normal, no oropharyngeal edema or exudates, angioedema of the lip, no angioedema of the tongue Eyes: Normal to appearance Neck: Supple, no lymphadenopathy Respiratory: Talks in complete sentences, no respiratory distress, clear to auscultation bilaterally Cardiovascular: Regular rate and rhythm, no murmurs rubs or gallops Abdomen: Soft, nontender, nondistended, no guarding, no rebound Back: No CVA tenderness Extremities: No clubbing cyanosis or edema Neurologic: No focal neurologic deficits, cranial nerves 2-12 intact, strength is 5/5 bilaterally Skin: No rash Course Course Course Narrative: Patient is significantly improved at this time. She received epinephrine, Benadryl, methylprednisolone, famotidine. She has been observed for 2-1/2 hours. She has no airway related issues. She has epi pens at home. She already has a prescription for prednisone. She has not been referred to an welding machine operator arc or plant wire chief. This will be done today. Patient was instructed the appropriate use of EpiPen and current regimen for medications. Medications Administered Discontinued Medications Generic Name Dose Route Start Last Admin Trade Name Freq PRN Reason Stop Dose Admin Diphenhydramine HCl 50 mg 12/09/22 07:28 12/09/22 07:41 Diphenhydramine Hcl 50 Mg/Ml Vial IVPUSH 12/09/22 07:29 50 mg ONCE ONE Administration Epinephrine 0.4 mg 12/09/22 07:28 12/09/22 07:42 Epinephrine 1 Mg/Ml Vial IM 12/09/22 07:29 0.4 mg STAT STA Administration Famotidine 20 mg 12/09/22 07:28 12/09/22 07:41 Famotidine/Pf 20 Mg/2 Ml Vial IVPUSH 12/09/22 07:29 20 mg ONCE ONE Administration Sodium Chloride 1,000 mls @ 999 mls/hr 12/09/22 07:30 12/09/22 08:45 Ns IV 12/09/22 08:30 Infused .Q1H1M MAXIMILIAN Infusion Methylprednisolone Sodium Succinate 80 mg 12/09/22 07:28 12/09/22 07:41 Methylprednisolone Sod Succ 125 Mg/2 Ml Vial IVPUSH 12/09/22 07:29 80 mg ONCE ONE Administration Medical Decision Making Medical Decision Making MDM Narrative: 47-year-old female presents with angioedema. She has no apparent airway compromise, no tongue swelling, no wheezing or stridor will provide patient with epinephrine, Benadryl, Solu-Medrol, famotidine, re-evaluate the patient. Patient needs to be referred to an welding machine operator arc and plant wire chief. She she does have EpiPen at home. She does not need additional EpiPen. Differential diagnosis could include allergic reaction, hereditary angioedema, idiopathic angioedema, non allergic drug reaction. Plan will be to have frequent re-evaluations. Differential Diagnosis Differential Diagnoses: The differential diagnosis associated with the presentation includes (See above) Admission/Observation Consideration of admission/observation: Escalation of care including admission/observation considered (Pending clinical improvement) Independent Historian Clinical information obtained from an independent historian. History obtained from or confirmed by: Friend Tests considered The following testing was considered but not selected: Lab her laboratory analysis Prescription Management I considered prescription management with: Other (Allergy medicine) Critical Care Time Critical Care Time Total Critical Care Time: 35 Attestation: 35 minutes of critical care time was spent in the process of an initial evaluation the patient, frequent reassessments, monitoring of pulse oximetry, interpretation and medical data including vital signs, administration of potentially life-saving medications, documentation and discussion of discharge planning Discharge Plan Discharge Clinical Impression: Angioedema Patient Disposition: Home, Self-Care Instructions: Angioedema (ED) Additional Instructions: Continue your prednisone as prescribed Take Cheryle 180 mg daily Take famotidine 20 mg twice daily Take diphenhydramine/Benadryl 25 mg at night Return immediately to the emergency department for worsening or progressive or any concerning symptoms. Prescriptions: New famotidine 20 mg tablet 20 mg PO BID Qty: 20 0RF fexofenadine [Cheryle Allergy] 180 mg tablet 180 mg PO DAILY Qty: 30 0RF diphenhydramine HCl 25 mg capsule 25 mg PO BEDTIME PRN (Reason: allergic reaction) Qty: 14 0RF No Action docusate sodium [Colace] 100 mg capsule 200 mg PO BEDTIME 30 Days Qty: 60 1RF cyclobenzaprine 10 mg tablet 10 mg PO BEDTIME PRN (Reason: muscle spasm) Qty: 10 0RF oxycodone 5 mg tablet 5 mg PO Q8H PRN (Reason: pain) Qty: 7 0RF prednisone 20 mg tablet 40 mg PO DAILY 5 Days Qty: 10 0RF hydroxyzine HCl 25 mg tablet 25 mg PO BEDTIME PRN (Reason: anxiety) Qty: 10 0RF epinephrine [EpiPen 2-Bert] 0.3 mg/0.3 mL auto-injector 0.3 mg IM Q4H PRN (Reason: anaphylaxis) Qty: 2 0RF prednisone 20 mg tablet 20 mg PO DAILY 7 Days Qty: 7 0RF Citrucel 500 mg tablet 500 mg PO BID 30 Days Qty: 60 5RF polyethylene glycol 3350 [Miralax] 17 gram/dose powder 17 g PO DAILY Qty: 510 2RF naproxen 500 mg tablet 500 mg PO BID 30 Days Qty: 60 3RF fluticasone propionate 50 mcg/actuation spray,suspension 2 spray intranasal DAILY Rx Instructions: administer into each nostril ibuprofen 800 mg tablet 800 mg PO TID cyclobenzaprine 10 mg tablet 10 mg PO TID diclofenac sodium 75 mg tablet,delayed release (DR/EC) 75 mg PO BID Flovent HFA 44 mcg/actuation HFA aerosol inhaler 2 puff inhalation BID Rx Instructions: administer with spacer hydrochlorothiazide 12.5 mg capsule 12.5 mg PO BID gabapentin 600 mg tablet 600 mg PO TID meloxicam submicronized 5 mg capsule 5 mg PO DAILY amitriptyline 25 mg tablet 25 mg PO BEDTIME Referrals: Shahnaz Vallejo MD [Physician] - 5 days Stand Alone Forms: Work/School Release Print Language: Ethiopian
[2022-12-09 09:50] VITALS: BP 105/72; PULSE 90; RESP 17; TEMP 36.6; O2SAT 97
== END 2022-12-09 10:31 | disposition home or self-care (01) ==
PROVIDERS: Emergency Provider Emergency Medicine; PCP Family Medicine
DX: T78.3XXA Angioneurotic edema, initial encounter (principal); T78.40XA Allergy, unspecified, initial encounter; L29.9 Pruritus, unspecified; X58.XXXA Exposure to other specified factors, initial encounter
CPT/HCPCS: 96361; 96372; 96374; 96375; 99284; J0171; J1200; J2930

== ENCOUNTER 2022-12-31 13:27 | Emergency (ER) | payer MEDICAID, SELFPAY ==
--- NOTE | ~2022-12-31 | CT_ITS ---
EXAMINATION: CT HEAD WITHOUT CONTRAST CLINICAL INFORMATION: Left facial swelling and numbness. COMPARISON: None available. TECHNIQUE: Contiguous axial imaging was performed from the skull base to vertex without intravenous administration of contrast. This CT examination was performed using dose optimization techniques as appropriate, variously including the following: *Automated exposure control *Adjustment of mA and/or kV according to patient size (this includes techniques or standardized protocols for targeted exams where dose is matched to indication/reason for exam; i.e. extremities or head) *Use of iterative reconstruction technique DLP: 686 mGy-cm FINDINGS: There is no acute intra-axial, extra-axial bleed, masses or midline shift. No acute infarction evolution. There is no edema. Radial white matter difference is maintained normal. The lateral ventricles are symmetrical in size and configuration without enlargement. Bone windows reveal no calvarial abnormality. There is no scalp soft tissue abnormality. The paranasal sinuses are well-aerated and clear. CT/CT head/brain wo IV con IMPRESSION: No acute intracranial process seen.
--- NOTE | 2022-12-31 13:56 | ED.GENADULT ---
HPI - General Adult General Chief complaint: Allergic Reaction Stated complaint: reaction to ? eyes swelling Time Seen by Provider: 12/31/22 17:38 Source: patient, RN notes reviewed and old records reviewed Mode of arrival: ambulatory History of Present Illness HPI narrative: 47-year-old female Greenlandic-speaking with a past medical history of HTN, anxiety, depression, Lyme disease with right-sided residual weakness presenting to ED complaining of persistent left facial swelling/edema and numbness noted since waking this morning. Admits has been dealing with allergies with this facial swelling x mos, has been seen at [facility] and saw business control specialist yesterday. Currently taking Fexofenadine/Famotidine which payroll machine operator increased dose yesterday. Admits left-sided facial swelling has improved since yesterday however numbness/continued swelling worried her today. Denies fall/injury or trauma. Reports mild headache. Denies vision change/loss, CP/SOB, neck pain, numbness/tingling, focal weakness. Denies taking anticoagulation. Admits has finished long course of prednisone taper from previous provider Onset (ago): month(s) Related Data Home Medications Medication Instructions Recorded Confirmed amitriptyline 25 mg tablet 25 mg PO BEDTIME 09/10/20 cyclobenzaprine 10 mg tablet 10 mg PO TID 09/10/20 diclofenac sodium 75 mg 75 mg PO BID 09/10/20 tablet,delayed release fluticasone propionate 44 2 puff inhalation BID 09/10/20 mcg/actuation HFA aerosol inhaler (Flovent HFA) fluticasone propionate 50 2 spray intranasal DAILY 09/10/20 mcg/actuation nasal spray,suspension gabapentin 600 mg tablet 600 mg PO TID 09/10/20 hydrochlorothiazide 12.5 mg capsule 12.5 mg PO BID 09/10/20 ibuprofen 800 mg tablet 800 mg PO TID 09/10/20 meloxicam submicronized 5 mg 5 mg PO DAILY 09/10/20 capsule Previous Rx's Medication Instructions Recorded cyclobenzaprine 10 mg tablet 10 mg PO BEDTIME PRN muscle spasm 09/27/20 #10 tabs oxycodone 5 mg tablet 5 mg PO Q8H PRN pain #7 tabs 09/27/20 methylcellulose (laxative) 500 mg 500 mg PO BID 30 days #60 tabs 11/19/20 tablet (Citrucel) polyethylene glycol 3350 17 17 g PO DAILY #510 grams 11/19/20 gram/dose oral powder (Miralax) naproxen 500 mg tablet 500 mg PO BID 30 days #60 tabs 02/14/21 docusate sodium 100 mg capsule 200 mg PO BEDTIME 30 days #60 caps 07/29/22 (Colace) prednisone 20 mg tablet 20 mg PO DAILY 7 days #7 tabs 11/17/22 epinephrine 0.3 mg/0.3 mL 0.3 mg (0.3 mL) IM Q4H PRN 11/30/22 injection, auto-injector (EpiPen anaphylaxis #2 ea 2-Bert) hydroxyzine HCl 25 mg tablet 25 mg PO BEDTIME PRN anxiety #10 11/30/22 tabs prednisone 20 mg tablet 40 mg PO DAILY 5 days #10 tabs 11/30/22 diphenhydramine HCl 25 mg capsule 25 mg PO BEDTIME PRN allergic 12/09/22 reaction #14 caps famotidine 20 mg tablet 20 mg PO BID #20 tabs 12/09/22 fexofenadine 180 mg tablet 180 mg PO DAILY #30 tabs 12/09/22 (Cheryle Allergy) Allergies Allergy/AdvReac Type Severity Reaction Status Date / Time aspirin [Aspirin] Allergy Unknown PAIN ON Verified 12/09/22 07:10 URINATION lisinopril Allergy Unknown Unknown Verified 12/09/22 07:10 Review of Systems Review of Systems: Constitutional: No Fever, No Chills ENT/Mouth: +facial swelling. No Ear Pain, No Nasal Congestion, No Sinus Pain, No Hoarseness, No sore throat, No Rhinorrhea, No Swallowing Difficulty Cardiovascular: No Chest Pain, No SOB Respiratory: No Cough, No Sputum, No Wheezing Gastrointestinal: No Nausea, No Vomiting, No Abdominal pain Genitourinary: No Dysuria, No Urinary Frequency, No Hematuria, No Flank Pain Musculoskeletal: No joint pain, No Myalgias, No Joint Swelling Skin: No Skin Lesions, No rash Neuro: No Weakness, + Numbness, No Paresthesias Yes all other systems are reviewed and are negative Constitutional: Constitutional: Reports as per [facility] Past Medical History Attestation statement: The following information was validated with the patient. Source: old records reviewed Medical History Anxiety Depression HTN (hypertension) Surgical History Hx of cholecystectomy Hx of tubal ligation Family History Family History Father Prostate cancer Paternal Grandfather Prostate cancer Maternal Grandfather Skin cancer Social History Social History Household Members: Children Household Members Other:: Single 27, 21 Alcohol intake: never Patient Tobacco Use Status: Never used Tobacco Advance Directives: No Advance Directives Information Provided: Yes Current occupational status: disabled Physical Exam ED Vital Signs: Vital Signs - 24 hr 12/31/22 13:58 Temperature 98.0 F Pulse Rate 87 Respiratory Rate 18 Blood Pressure 141/86 H Pulse Oximetry 99 Oxygen Delivery Method Room Air BMI result Body Mass Index 27.5 Const General: cooperative, healthy appearing, no acute distress, alert, awake and Physically active Orientation/consciousness: patient oriented x3 Limitations: no limitations HENMT Other: Mild left-sided facial swelling/edema > periorbitally. No erythema/warmth. Nontender. No palpable step-off Head: Yes normal to inspection and Yes atraumatic Ears: hearing grossly normal bilaterally, external ears normal, TM's normal bilaterally and mastoids normal General nose exam: Normal external nose present Face and sinus: Yes edema Mouth: Normal oral and palatal mucosa present Throat: Yes posterior oropharynx normal, Yes tonsils normal, Yes uvula midline, No peritonsillar mass, No uvula laterally displaced and No uvular edema Eyes General: appearance normal, both eyes and all related structures Pupils: Equal, round and reactive pupils present EOM: EOMs intact bilaterally and no movement deficit Neck Neck: Yes normal visual inspection and Yes no meningeal signs Resp Effort & Inspection: normal respiratory effort and no respiratory distress Cardio Rate: regular rate Skin Rashes: no rashes Wounds: no wounds Neuro Other: Mild right-sided weakness chronic per patient General: patient oriented x3, gait normal, tone normal, moves all extremities, no meningeal signs, no focal motor deficits and CN's II-XI intact bilaterally Cranial nerves: Yes CN's II-XII intact bilaterally and Yes Equal, round and reactive pupils present Gait exam (Neuro): Normal gait present Motor exam (neuro): no tremor noted Extrem General: Yes normal to inspection Course Course Course Narrative: This is a rapid medical exam: Additional HPI, ROS, PE not included below will be deferred to primary provider. Patient is a 47-year-old female presenting with complaint of left eye swelling since yesterday. Saw an payroll machine operator last week and was prescribed fexofenadine and famotidine for allergies. Denies pain with eye movement, denies changes in vision. States area feels warm and numb, denies itching. Has had similar symptoms with allergic reactions in the past. She has been having ongoing allergic reactions for the past few months, has been seen at several EDs for same. Denies any shortness of breath or swelling to lips, tongue, or throat. No angioedema, LS CTA. -1899--ED care transferred to [facility] pending head CT and dispo per results Medical Decision Making Medical Decision Making MDM Narrative: 47-year-old female Greenlandic-speaking with a past medical history of HTN, anxiety, depression, Lyme disease with right-sided residual weakness presenting to ED complaining of persistent left facial swelling/edema and numbness noted since waking this morning. On exam vital signs stable, NAD, nontoxic appearing, physical exam as noted above with left-sided facial swelling greater periorbital ED. No focal neuro deficits. Concern for continued allergy symptoms vs sinusitis vs ? Subacute CVA. Patient not in the window for tPA. Low suspicion for periorbital/orbital cellulitis, fracture, corneal abrasion. No evidence of anaphylaxis Plan: Head CT Please refer to course for remaining clinical decision making, interpretation of labs/imaging results, and discussions with consultants and/or family members. Differential Diagnosis Differential Diagnoses: The differential diagnosis associated with the presentation includes As above Radiology Impression Discussion of test interpretation with radiology: I have reviewed the radiologist's reading. Independent Historian Clinical information obtained from an independent historian. History obtained from or confirmed by: Other (family) External Record Review External record reviewed: Inpatient record, Office record, Outpatient record, Prior outpatient labs, Prior outpatient radiology, Primary care record and Outside ED record Tests considered The following testing was considered but not selected: As above Discharge Plan Discharge Clinical Impression: Facial edema Patient Disposition: Still a Patient Instructions: Edema (ED) Additional Instructions: Continue taking previously prescribed medications from her payroll machine operator In addition take Tylenol and Motrin which will help with swelling Follow-up with your doctor If he develops weakness, persistent numbness, drooling, fever, vision changes return to the ED Continuar tomando los medicamentos recetados previamente por schroeder alerg?logo. Adem?s, tome Tylenol y Motrin, que ayudar?n con la hinchaz?n. Seguimiento con schroeder m?dico Si desarrolla debilidad, entumecimiento persistente, babeo, fiebre, cambios en la visi?n, regrese al servicio de urgencias. Prescriptions: No Action docusate sodium [Colace] 100 mg capsule 200 mg PO BEDTIME 30 Days Qty: 60 1RF cyclobenzaprine 10 mg tablet 10 mg PO BEDTIME PRN (Reason: muscle spasm) Qty: 10 0RF oxycodone 5 mg tablet 5 mg PO Q8H PRN (Reason: pain) Qty: 7 0RF prednisone 20 mg tablet 40 mg PO DAILY 5 Days Qty: 10 0RF hydroxyzine HCl 25 mg tablet 25 mg PO BEDTIME PRN (Reason: anxiety) Qty: 10 0RF epinephrine [EpiPen 2-Bert] 0.3 mg/0.3 mL auto-injector 0.3 mg IM Q4H PRN (Reason: anaphylaxis) Qty: 2 0RF famotidine 20 mg tablet 20 mg PO BID Qty: 20 0RF fexofenadine [Cheryle Allergy] 180 mg tablet 180 mg PO DAILY Qty: 30 0RF diphenhydramine HCl 25 mg capsule 25 mg PO BEDTIME PRN (Reason: allergic reaction) Qty: 14 0RF prednisone 20 mg tablet 20 mg PO DAILY 7 Days Qty: 7 0RF Citrucel 500 mg tablet 500 mg PO BID 30 Days Qty: 60 5RF polyethylene glycol 3350 [Miralax] 17 gram/dose powder 17 g PO DAILY Qty: 510 2RF naproxen 500 mg tablet 500 mg PO BID 30 Days Qty: 60 3RF fluticasone propionate 50 mcg/actuation spray,suspension 2 spray intranasal DAILY Rx Instructions: administer into each nostril ibuprofen 800 mg tablet 800 mg PO TID cyclobenzaprine 10 mg tablet 10 mg PO TID diclofenac sodium 75 mg tablet,delayed release (DR/EC) 75 mg PO BID Flovent HFA 44 mcg/actuation HFA aerosol inhaler 2 puff inhalation BID Rx Instructions: administer with spacer hydrochlorothiazide 12.5 mg capsule 12.5 mg PO BID gabapentin 600 mg tablet 600 mg PO TID meloxicam submicronized 5 mg capsule 5 mg PO DAILY amitriptyline 25 mg tablet 25 mg PO BEDTIME Referrals: Elizabeth Hess MD [Primary Care Provider] - 2 days Print Language: Greenlandic
[2022-12-31 13:58] VITALS: BP 141/86; PULSE 87; RESP 18; TEMP 36.7; O2SAT 99; BMI 27.5
[2022-12-31 19:49] VITALS: BP 122/79; PULSE 69; RESP 18; TEMP 36.9; O2SAT 99
== END 2022-12-31 20:37 | disposition home or self-care (01) ==
PROVIDERS: Emergency Provider Emergency Medicine; PCP Family Medicine
DX: L08.9 Local infection of the skin and subcutaneous tissue, unspecified (principal); R51.9 Headache, unspecified
CPT/HCPCS: 70450; 99282; 99284

== ENCOUNTER 2023-01-17 11:49 | Emergency (ER) | payer MEDICAID, SELFPAY ==
[2023-01-17] VITALS (8 sets, daily range): BP systolic 112–147; BP diastolic 68–85; PULSE 77–93; RESP 13–20; TEMP 36.7–36.8; O2SAT 96–100; BMI 27.5
--- NOTE | 2023-01-17 12:19 | ED_ITS ---
HPI - Eye Problem General Chief complaint: Eye Problems Stated complaint: Facial swelling Time Seen by Provider: 01/17/23 12:57 Source: patient and special delivery messenger Mode of arrival: ambulatory History of Present Illness HPI Narrative: 47-year-old female with recurring angioedema for the past 2 months, currently being followed by an fire prevention chief and taking fexofenadine, she has epi pens also at her to disposal. Patient has no current airway concerns. Related Data Home Medications Medication Instructions Recorded Confirmed amitriptyline 25 mg tablet 25 mg PO BEDTIME 09/10/20 cyclobenzaprine 10 mg tablet 10 mg PO TID 09/10/20 diclofenac sodium 75 mg 75 mg PO BID 09/10/20 tablet,delayed release fluticasone propionate 44 2 puff inhalation BID 09/10/20 mcg/actuation HFA aerosol inhaler (Flovent HFA) fluticasone propionate 50 2 spray intranasal DAILY 09/10/20 mcg/actuation nasal spray,suspension gabapentin 600 mg tablet 600 mg PO TID 09/10/20 hydrochlorothiazide 12.5 mg capsule 12.5 mg PO BID 09/10/20 ibuprofen 800 mg tablet 800 mg PO TID 09/10/20 meloxicam submicronized 5 mg 5 mg PO DAILY 09/10/20 capsule Previous Rx's Medication Instructions Recorded cyclobenzaprine 10 mg tablet 10 mg PO BEDTIME PRN muscle spasm 09/27/20 #10 tabs oxycodone 5 mg tablet 5 mg PO Q8H PRN pain #7 tabs 09/27/20 methylcellulose (laxative) 500 mg 500 mg PO BID 30 days #60 tabs 11/19/20 tablet (Citrucel) polyethylene glycol 3350 17 17 g PO DAILY #510 grams 11/19/20 gram/dose oral powder (Miralax) naproxen 500 mg tablet 500 mg PO BID 30 days #60 tabs 02/14/21 docusate sodium 100 mg capsule 200 mg PO BEDTIME 30 days #60 caps 07/29/22 (Colace) prednisone 20 mg tablet 20 mg PO DAILY 7 days #7 tabs 11/17/22 epinephrine 0.3 mg/0.3 mL 0.3 mg (0.3 mL) IM Q4H PRN 11/30/22 injection, auto-injector (EpiPen anaphylaxis #2 ea 2-Bert) hydroxyzine HCl 25 mg tablet 25 mg PO BEDTIME PRN anxiety #10 11/30/22 tabs prednisone 20 mg tablet 40 mg PO DAILY 5 days #10 tabs 11/30/22 diphenhydramine HCl 25 mg capsule 25 mg PO BEDTIME PRN allergic 12/09/22 reaction #14 caps famotidine 20 mg tablet 20 mg PO BID #20 tabs 12/09/22 fexofenadine 180 mg tablet 180 mg PO DAILY #30 tabs 12/09/22 (Cheryle Allergy) Allergies Allergy/AdvReac Type Severity Reaction Status Date / Time aspirin [Aspirin] Allergy Unknown PAIN ON Verified 01/17/23 12:22 URINATION lisinopril Allergy Unknown Unknown Verified 01/17/23 12:22 Review of Systems Review of Systems: Pertinent positives and negatives as stated in [facility] Past Medical History Source: nursing notes reviewed Medical History Anxiety Depression HTN (hypertension) Lyme disease Surgical History Hx of cholecystectomy Hx of tubal ligation Family History Family History Father Prostate cancer Paternal Grandfather Prostate cancer Maternal Grandfather Skin cancer Social History Social History Household Members: Children Household Members Other:: Single 27, 21 Alcohol intake: never Patient Tobacco Use Status: Never used Tobacco Smoked in Last 30 Days: No Use of substances other than those prescribed or required for medical reasons: No Advance Directives: No Advance Directives Information Provided: Yes Current occupational status: disabled Physical Exam Vital Signs: Vital Signs: Last Vital Signs Temp 98.2 F 01/17/23 12:16 Pulse 90 01/17/23 16:25 Resp 14 01/17/23 16:25 BP 115/78 01/17/23 16:25 Pulse Ox 97 01/17/23 16:25 O2 Del Method Room Air 01/17/23 16:25 BMI result Body Mass Index 27.5 VITAL SIGNS: Reviewed. GENERAL: Well developed, well nourished, in no acute distress. HEAD: Normocephalic/atraumatic EYES: PERRLA, EOMI, right eye is swollen EARS: Ext canals without abnormality NOSE: Nares patent bilateral OROPHARYNX: no oral lesions noted, posterior pharynx clear, lip swelling without tongue swell NECK: Supple, no adenopathy LUNGS: No stridor, no expiratory wheeze, no tachypnea Normal breath sounds. No adventitious sounds or accessory muscle use. SpO2<100> CARDIOVASCULAR: Regular rate and rhythm without noted murmurs ABDOMEN: Soft, non-tender, non-distended with bowel sounds. MUSCULOSKELETAL: No tenderness, deformities, or effusions noted on gross inspection. EXTREMITIES: No cyanosis, clubbing or edema. SKIN: Inspection of the skin reveals no rashes NEUROLOGIC: Alert and oriented x 4. Strength and sensation to light touch were grossly intact x 4. Course Course Course Narrative: This is rapid medical exam. Deferred additional HPI, ROS, PE to primary provider. 47 yo female w/ no medical history here with waking with perioribital swelling/itching. No eye pain, visual changes EOM normal in triage Will need eye exam. VSS Medications Administered Discontinued Medications Generic Name Dose Route Start Last Admin Trade Name Che PRN Reason Stop Dose Admin Diphenhydramine HCl 50 mg 01/17/23 14:08 01/17/23 14:20 Diphenhydramine Hcl 50 Mg/Ml Vial IVPUSH 01/17/23 14:09 50 mg ONCE ONE Administration Epinephrine 0.3 mg 01/17/23 14:13 01/17/23 14:18 Epinephrine 1 Mg/Ml Vial IM 01/17/23 14:14 0.3 mg STAT STA Administration Famotidine 20 mg 01/17/23 14:08 01/17/23 14:20 Famotidine/Pf 20 Mg/2 Ml Vial IVPUSH 01/17/23 14:09 20 mg ONCE ONE Administration Fluorescein Sodium 1 strip 01/17/23 12:20 01/17/23 13:23 Fluorescein Sodium Strip EYE-RIGHT 01/17/23 12:21 1 strip ONCE ONE Administration Methylprednisolone Sodium Succinate 125 mg 01/17/23 14:08 01/17/23 14:20 Methylprednisolone Sod Succ 125 Mg/2 Ml Vial IVPUSH 01/17/23 14:09 125 mg ONCE ONE Administration Tetracaine HCl 1 drop 01/17/23 12:20 01/17/23 13:23 Tetracaine Hcl/Pf 0.5% Oph Ivonne 4 Ml Drops EYE-RIGHT 01/17/23 12:21 1 drop ONCE ONE Administration Medical Decision Making Medical Decision Making MDM Narrative: 47-year-old female with history and clinical presentation consistent with angioedema and received steroids/EpiPen/Benadryl/Pepcid. After extensive questioning IM no closer to identifying the etiology for patient's random angioedema, I cannot identify a pattern of exposure either at her work or at home. She is working closely with an fire prevention chief who will see her on Wednesday. Will give her a work note until she is evaluated by the fire prevention chief on Wednesday. She is otherwise to be observed for the next 4 hours as she has received EpiPen injection, on re-evaluation patient appears to have significant improvement in swelling and no concerns for airway compromise at this time. 1644: On re-evaluation the upper lip swelling has significantly improved, air airway is still intact without any airway concerns, right eye has significantly improved and is still somewhat swollen. Patient will be observed until 1800, signed out to Dr Heaton Differential Diagnosis Differential Diagnoses: The differential diagnosis associated with the presentation includes Please see the discussion above Admission/Observation Consideration of admission/observation: Escalation of care including admission/observation considered Please see discussion above External Record Review External record reviewed: Outpatient record and Prior outpatient labs Critical Care Time Critical Care Time Critical Care Time: Yes Total Critical Care Time: 30 Attestation: I personally attest to this time spent taking care of the patient. Discharge Plan Discharge Clinical Impression: [id number] Patient Disposition: Still a Patient Instructions: Angioedema (ED) Additional Instructions: Please resume all home medications as prescribed. Please follow-up with your fire prevention chief on Wednesday as scheduled. Return to the ER for any worsening symptoms. Prescriptions: No Action docusate sodium [Colace] 100 mg capsule 200 mg PO BEDTIME 30 Days Qty: 60 1RF cyclobenzaprine 10 mg tablet 10 mg PO BEDTIME PRN (Reason: muscle spasm) Qty: 10 0RF oxycodone 5 mg tablet 5 mg PO Q8H PRN (Reason: pain) Qty: 7 0RF prednisone 20 mg tablet 40 mg PO DAILY 5 Days Qty: 10 0RF hydroxyzine HCl 25 mg tablet 25 mg PO BEDTIME PRN (Reason: anxiety) Qty: 10 0RF epinephrine [EpiPen 2-Bert] 0.3 mg/0.3 mL auto-injector 0.3 mg IM Q4H PRN (Reason: anaphylaxis) Qty: 2 0RF famotidine 20 mg tablet 20 mg PO BID Qty: 20 0RF fexofenadine [Cheryle Allergy] 180 mg tablet 180 mg PO DAILY Qty: 30 0RF diphenhydramine HCl 25 mg capsule 25 mg PO BEDTIME PRN (Reason: allergic reaction) Qty: 14 0RF prednisone 20 mg tablet 20 mg PO DAILY 7 Days Qty: 7 0RF Citrucel 500 mg tablet 500 mg PO BID 30 Days Qty: 60 5RF polyethylene glycol 3350 [Miralax] 17 gram/dose powder 17 g PO DAILY Qty: 510 2RF naproxen 500 mg tablet 500 mg PO BID 30 Days Qty: 60 3RF fluticasone propionate 50 mcg/actuation spray,suspension 2 spray intranasal DAILY Rx Instructions: administer into each nostril ibuprofen 800 mg tablet 800 mg PO TID cyclobenzaprine 10 mg tablet 10 mg PO TID diclofenac sodium 75 mg tablet,delayed release (DR/EC) 75 mg PO BID Flovent HFA 44 mcg/actuation HFA aerosol inhaler 2 puff inhalation BID Rx Instructions: administer with spacer hydrochlorothiazide 12.5 mg capsule 12.5 mg PO BID gabapentin 600 mg tablet 600 mg PO TID meloxicam submicronized 5 mg capsule 5 mg PO DAILY amitriptyline 25 mg tablet 25 mg PO BEDTIME Referrals: Elizabeth Hess MD [Primary Care Provider] - Stand Alone Forms: Work/School Release Print Language: Swedish
[2023-01-17] MEDS: Fluorescein Sodium STRIP 1 STRIP EYE-RIGHT (13:23)
[2023-01-17] MEDS: Tetracaine HCl/PF 0.5% Oph Sol 4 ML DROPS 1 DROP EYE-RIGHT (13:23)
--- NOTE | 2023-01-17 14:00 | PC.NURSE ---
pt noted to have swelling to right eye upon arrival, pt right eye and now upper lip now beginning to swell. pt has PMHx angioedema, pt placed on project manager/team coach, 20g iv access established, vss pt managing secretions and speaking in full sentances, managing secretions. 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 call walters within reach.
--- NOTE | 2023-01-17 14:09 | PC.NURSE ---
pt moved to main ed due to lip swelling- pt reported hx angioedema w/o need for airway adjunct. reports episode of severe lip swelling last week, no meds given at time per pt report- states has epi pen at home. see visual acuity assmt. +o2 Sat on RA. no respiratory distress. airway intact w/o obstruction.
[2023-01-17] MEDS: EPINEPHrine 1 MG/ML VIAL 0.3 MG IM (14:18)
[2023-01-17] MEDS: methylPREDNISolone Sod Succ 125 MG/2 ML VIAL IVPUSH (14:20)
[2023-01-17] MEDS: diphenhydrAMINE HCL 50 MG/ML VIAL IVPUSH (14:20)
[2023-01-17] MEDS: Famotidine/PF 20 MG/2 ML VIAL IVPUSH (14:20)
--- NOTE | 2023-01-17 14:21 | PC.NURSE ---
Addendum entered by Maryanne Cobos 01/17/23 14:23: electronic engineering draftsperson Original Note: Pt transferred from [facility] to main ED, medicated as charted for notable right sided facial swelling. Pt denies diff breathing, or SOB, patent airway. NSR on tele. Epi admin to left deltoid.
--- NOTE | 2023-01-17 16:37 | PC.NURSE ---
pt a&o x4, pleasant, calm, and cooperative. pt sts she feels about the same. disconnect pt from monitor to allow pt to walk to bathroom. pt ambulated with steady gait. pt mother at bedside. currently resting quietly on stretcher in no apparent distress. rr even/unlabored. wctm
== END 2023-01-17 19:01 | disposition home or self-care (01) ==
PROVIDERS: Emergency Provider Internal Medicine; PCP Family Medicine
DX: T78.3XXA Angioneurotic edema, initial encounter (principal); Z79.899 Other long term (current) drug therapy
CPT/HCPCS: 96372; 96374; 96375; 99284; J0171; J1200; J2930

== ENCOUNTER 2023-04-05 18:59 | Outpatient (REF) | payer MEDICAID, SELFPAY | END 2023-04-05 19:00 | disposition home or self-care (01) | LOC: HO.HHCLNP 18:59 | PROVIDERS: Visit Provider Family Medicine | DX: Z12.4 Encounter for screening for malignant neoplasm of cervix (principal) | CPT/HCPCS: 88142 ==

== ENCOUNTER 2023-04-14 10:38 | Outpatient (REF) | payer MEDICAID, SELFPAY ==
--- NOTE | ~2023-04-14 | MM_ITS ---
EXAMINATION: MM SCREENING DIGITAL BREAST TOMOSYNTHESIS, BILATERAL CLINICAL INFORMATION: Screening. Asymptomatic. COMPARISON: Mammography: This study is compared with prior exams dating back to 2015. TECHNIQUE: Digital breast tomosynthesis is performed in both the craniocaudal and mediolateral oblique views along with computer-aided detection (CAD). Synthesized 2D images are generated from the tomosynthesis. FINDINGS: There are scattered areas of fibroglandular density (ACR BI-RADS breast composition Category b). There are no significant masses, abnormal calcifications, or other abnormalities. MM/MM tomosynthesis screening BI IMPRESSION: No mammographic evidence of malignancy. ASSESSMENT: BI-RADS BI-RADS 1 - Negative RECOMMENDATION: Routine annual mammography screening. 1 year F/U This examination should not preclude the clinical evaluation of a suspicious palpable abnormality. This patient's information was entered into a reminder system with a target due date for their next mammogram.
== END 2023-04-14 10:39 | disposition home or self-care (01) ==
LOC: HO.MAMMO 10:38
PROVIDERS: PCP Family Medicine; Visit Provider Family Medicine
DX: Z12.31 Encounter for screening mammogram for malignant neoplasm of breast (principal)
CPT/HCPCS: 77063; 77067

== ENCOUNTER → 2023-04-14 10:45 | Outpatient (BNV) | payer MEDICAID, SELFPAY | PROVIDERS: PCP Family Medicine; Visit Provider Radiology Diagnostic Radiology | DX: Z12.31 Encounter for screening mammogram for malignant neoplasm of breast (principal) | CPT/HCPCS: 77063; 77067 ==

== ENCOUNTER 2023-11-30 13:33 | Outpatient (REF) | payer MEDICAID, SELFPAY ==
[2023-12-01 08:40] LABS: HBS Num1 337.89 mIU/mL (0-7.99); HBc Num1 0.13 S/CO (0.00-0.79); HBsAGNum1 0.25 S/CO (0.00-0.99); Hepatitis B Core Antibody Nonreactive (Nonreactive); Hepatitis B Surface Antigen Negative (Negative); ~Hepatitis B Surface Antibody REACTIVE (Nonreactive)
== END 2023-11-30 13:34 | disposition home or self-care (01) ==
LOC: HO.HHCL 13:33
PROVIDERS: Visit Provider Family Medicine
DX: Z01.84 Encounter for antibody response examination (principal)
CPT/HCPCS: 36415; 86704; 86706; 87340